=== PATIENT | male | born 1990 | race Caucasian/White ===

== ENCOUNTER 2022-08-25 11:37 | Emergency (ER) | payer MEDICARE ==
[~2022-08-25] VITALS: Ht 172.7 cm; Wt 74.8 kg
[2022-08-25 11:47] VITALS: BP 124/80
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
[2022-08-25] MEDS ORDERED: BENC TP (12:25)
[2022-08-25] MEDS ORDERED: CEPH-588 PO (12:25)
--- NOTE | 2022-08-25 12:30 | NUR ---
Patient discharged with v/s stable. Written and verbal after care instructions ABOUT INSECT BITE given and explained. Patient alert, oriented and verbalized understanding of instructions. Ambulatory with steady gait. All questions addressed prior to discharge. ID band removed. Patient advised to follow up with PMD. Rx of BENADRYL CREAM AND KEFLEX given. Patient educated on indication of medication including possible reaction and side effects. Opportunity to ask questions provided and answered.
== END 2022-08-25 12:30 | disposition home or self-care (01) ==
LOC: MED 11:37
DX: S40.861A Insect bite (nonvenomous) of right upper arm, initial encounter (principal); S40.862A Insect bite (nonvenomous) of left upper arm, initial encounter; Z89.021 Acquired absence of right finger(s); Z89.022 Acquired absence of left finger(s); Z79.899 Other long term (current) drug therapy; Z98.890 Other specified postprocedural states; W57.XXXA Bitten or stung by nonvenomous insect and other nonvenomous arthropods, initial encounter; Y93.89 Activity, other specified; Y92.89 Other specified places as the place of occurrence of the external cause; Y99.8 Other external cause status
CPT/HCPCS: 99283